=== PATIENT | female | born 1970 | race Caucasian/White ===

== ENCOUNTER 2016-06-12 18:09 | Emergency (ER) | payer BC ==
[~2016-06-12] VITALS: Ht 157.5 cm; Wt 78.1 kg
[~2016-06-12 18:09] MED LIST: ALBUAER19 INH; ALL180 PO; FLVHFAUNK PO; IBUP-1050 PO; PRLSR20 PO; SNG10 PO; TIOTCAP INH
[2016-06-12 18:20] VITALS: Ht 157.5 cm; Wt 78.1 kg
[2016-06-12] MEDS ORDERED: MONT1TAB3 PO (21:13)
[2016-06-12] MEDS ORDERED: ALBUAER INH (21:13)
[2016-06-12] MEDS ORDERED: RANI150T3 PO (21:13)
[2016-06-12] MEDS ORDERED: CLR10 PO (21:13)
[2016-06-12] MEDS ORDERED: FLVHFA110 INH (21:13)
[2016-06-12] MEDS ORDERED: MISCCAP80 PO (21:13)
[2016-06-12] MEDS ORDERED: NAPR1TAB9 PO (21:13)
--- NOTE | 2016-06-12 21:26 | EMERGENCY ROOM VISIT NOTE ---
History Report prepared by Pedro: Dedrick Phillips Under the Supervision of: Dr. Tapan Fernandes M.D. First contact with patient: 21:15 Chief Complaint: REFERRED BY DOCTOR Stated Complaint: FOUND A LUMP ON SIDE,SENT BY History of Present Illness The patient is a 45 year old female who presents to the Emergency Room with complaints of a constantly present lump on her right side under the breast that she noticed two nights ago. The lump is minimally painful and worsened with touch. The patient called her primary doctor who could not get her an appointment and referred her to the ED. The lump has not bled or drained. She had a CT abdomen in March, which showed hepatomegaly. The patient denies any fevers, cough. She has not had any recent injuries, trauma, or heavy lifting. The patient also complains of frequent abdominal bloating. She is s/p cholecystectomy. She has a history of ovarian cyst and endometriosis. Source of History: patient Onset: two nights ago Position: other (under right breast) Quality: other (lump) Timing: constant Associated Symptoms: No cough, No fevers Review of Systems See HPI for pertinent positives & negatives. A total of 10 systems reviewed and were otherwise negative. Past Medical & Surgical Medical Problems: (1) Endometriosis (2) Ovarian cyst Surgical Problems: (1) S/P cholecystectomy Old medical records were reviewed. Nurse's notes were reviewed and I agree with. Family History Diabetes mellitus FH: lung disease FHx: gallbladder disease Hypertension Kidney disease Social History Smoking Status: Never Smoker Marital Status: Housing Status: lives with family Occupation Status: employed Current/Historical Medications Scheduled Fluticasone Propionate (Flovent Hfa), 2 PUFFS INH BID Ibuprofen (Advil), 400-600 MG PO Q4HR PRN Montelukast Sodium (Singulair), 10 MG PO DAILY Probiotic Product (Probiotic), 1 CAP PO DAILY Ranitidine Hcl (Zantac), 150 MG PO HS Scheduled PRN Albuterol Sulfate (Proventil Hfa), 2 PUFF INH Q4 PRN for SOB/Wheezing Loratadine (Claritin), 10 MG PO DAILY PRN for ALLERGIC REACTION Naproxen (Aleve), 440 MG PO BID PRN for Pain Allergies Coded Allergies: Methylprednisolone (Verified Allergy, Severe, IRREGULAR HR, HIGH BP, ) Sulfamethoxazole w/Trimethoprim (Verified Allergy, Severe, ITCHY, 06/12/16) Penicillins (Verified Allergy, Mild, RASH, 10/18/11) RASH Cat Dander (Verified Allergy, Unknown, 01/28/05) Milk (Verified Allergy, Unknown, 01/28/05) Physical Exam Vital Signs Date Time Temp Pulse Resp B/P Pulse Ox O2 Delivery O2 Flow Rate FiO2 06/12/16 23:49 36.8 88 20 170/88 99 Room Air 06/12/16 23:49 88 20 170/88 99 06/12/16 21:36 76 20 142/102 99 Room Air 06/12/16 18:20 36.8 88 18 166/95 99 Room Air Physical Exam General: Non ill appearing young female no acute distress. HEENT: Normal cephalic atraumatic. Pupils are equal round and reactive to light. Extraocular movements are intact. Oropharynx is pink with moist mucous membranes. No swelling of the mouth lips or tongue. Neck: Supple with a midline trachea. No meningeal signs or stiffness, no JVD or bruits. No Stridor. Chest: Clear to auscultation bilaterally. No wheezes or rhonchi. No increased work of breathing. Heart: regular rate and rhythm. Abdomen: Tender along the right lower ribs where there is a nodule felt which could be cartilage or part of the rib. No hernias. Negative Renner's sign. Extremities: No cyanosis clubbing or edema. No calf tenderness or assymetry Spine/Back. Non tender to palpation. No CVA tenderness Skin: Good turgor without rashes. Neurologic exam: Cranial nerves two through 12 are intact. Motor and sensation are intact and symmetrical throughout. Medical Decision & Procedures ER Provider Diagnostic Interpretation: X-ray results as stated below per interpretation by me and the radiologist: CHEST ONE VIEW PORTABLE CLINICAL HISTORY: Chest pain. COMPARISON STUDY: No previous studies for comparison. FINDINGS: Lung volumes are normal. Lungs are clear. There is no pneumothorax or pleural effusion. Cardiac size is normal. Mediastinal contours are normal. There is no evidence of pulmonary edema. Minimal left basilar opacity favors atelectasis. IMPRESSION: No acute cardiopulmonary findings. Electronically signed by: Te Small M.D. 06/12/2016 9:50 PM Dictated Date/Time: 06/12/2016 9:49 PM Laboratory Results 06/12/16 21:45 Red Blood Count 4.76, Mean Corpuscular Volume 90.5, Mean Corpuscular Hemoglobin 30.9, Mean Corpuscular Hemoglobin Concent 34.1, Mean Platelet Volume 9.8, Neutrophils (%) (Auto) 56.9, Lymphocytes (%) (Auto) 34.7, Monocytes (%) (Auto) 6.1, Eosinophils (%) (Auto) 1.4, Basophils (%) (Auto) 0.5, Neutrophils # (Auto) 4.87, Lymphocytes # (Auto) 2.96, Monocytes # (Auto) 0.52, Eosinophils # (Auto) 0.12, Basophils # (Auto) 0.04 06/12/16 21:45 Test 06/12/16 21:45 White Blood Count 8.54 K/uL (4.8-10.8) Red Blood Count 4.76 M/uL (4.2-5.4) Hemoglobin 14.7 g/dL (12.0-16.0) Hematocrit 43.1 % (37-47) Mean Corpuscular Volume 90.5 fL (80-100) Mean Corpuscular Hemoglobin 30.9 pg (25-34) Mean Corpuscular Hemoglobin Concent 34.1 g/dl (32-36) Platelet Count 322 K/uL (130-400) Mean Platelet Volume 9.8 fL (7.4-10.4) Neutrophils (%) (Auto) 56.9 % Lymphocytes (%) (Auto) 34.7 % Monocytes (%) (Auto) 6.1 % Eosinophils (%) (Auto) 1.4 % Basophils (%) (Auto) 0.5 % Neutrophils # (Auto) 4.87 K/uL (1.4-6.5) Lymphocytes # (Auto) 2.96 K/uL (1.2-3.4) Monocytes # (Auto) 0.52 K/uL (0.11-0.59) Eosinophils # (Auto) 0.12 K/uL (0-0.5) Basophils # (Auto) 0.04 K/uL (0-0.2) RDW Standard Deviation 43.1 fL (36.4-46.3) RDW Coefficient of Variation 13.0 % (11.5-14.5) Immature Granulocyte % (Auto) 0.4 % Immature Granulocyte # (Auto) 0.03 K/uL (0.00-0.02) Anion Gap 9.0 mmol/L (3-11) Est Creatinine Clear Calc Drug Dose 91.0 ml/min Estimated GFR () 111.8 Estimated GFR (Non- 96.5 BUN/Creatinine Ratio 23.9 (10-20) Calcium Level 9.1 mg/dl (8.5-10.1) Total Bilirubin 0.6 mg/dl (0.2-1) Direct Bilirubin 0.1 mg/dl (0-0.2) Aspartate Amino Transf (AST/SGOT) 18 U/L (15-37) Alanine Aminotransferase (ALT/SGPT) 28 U/L (12-78) Alkaline Phosphatase 65 U/L (45-117) Total Protein 7.0 gm/dl (6.4-8.2) Albumin 3.8 gm/dl (3.4-5.0) Lipase 219 U/L (73-393) Laboratory studies as stated above per my review. ED Course 2116: Past medical records reviewed. The patient was evaluated in room C5, and a complete history and physical examination were performed. 2316: The patient is more comfortable. 2340: Reassessed the patient. Discussed the findings with her. She verbalized understanding and agreement. The patient is ready for discharge. Medical Decision Differential diagnosis includes costochondritis, musculoskeletal pain, infection , hernia, electrolyte or metabolic abnormality, hepatic abnormality. This patient comes in as described above. She was placed in room C5. She is having pain along the right lower ribs. She's had extensive workup for this including CAT scans, GI workup, etc. She looks well on exam . she's had no trauma. On my exam. She is tender to palpation along the ribs. Chest x-ray is unremarkable and shows no pneumothorax or anything in the base. She's no pleurisy or anything to suggest PE or pulmonary process. She has normal vital signs with exception be mildly hypertensive although she is somewhat anxious which likely explains this. She's had no white count or fever discussed infection. She's not significant anemic. She has normal liver functions and lipase. There is nothing to suggest liver, gallbladder, or pancreas disease. She has normal kidney function. I think this is most likely musculoskeletal. I have reviewed her CAT scan reports they do not show any definite abnormalities. She was concerned about her liver as there was a possible hemangioma seen on CAT scan. I think this is unlikely causing her symptoms. I encourage her follow-up with her regular doctor ,use anti-inflammatories, return if: increasing pain, worsening of symptoms, fever or chills, any new problems concerns. The patient was happy with plan and she was discharged to home. Impression Primary Impression: Rib pain on right side Scribe Attestation The scribe's documentation has been prepared under my direction and personally reviewed by me in its entirety. I confirm that the note above accurately reflects all work, treatment, procedures, and medical decision making performed by me. Departure Information Dispostion Home / Self-Care Referrals Kevin Webb M.D. (PCP) Forms HOME CARE DOCUMENTATION FORM, IMPORTANT VISIT INFORMATION, WORK / SCHOOL INSTRUCTIONS Patient Instructions My [facility] Additional Instructions Rest Drink plenty of fluids Use Ibuprofen 400 mg every 6 hours take with food REturn if: worsening of symptoms, increasing pain, fever, any new problems, or concerns
--- NOTE | 2016-06-12 21:51 | DIAGNOSTIC IMAGING REPORT ---
CHEST ONE VIEW PORTABLE CLINICAL HISTORY: Chest pain. COMPARISON STUDY: No previous studies for comparison. FINDINGS: Lung volumes are normal. Lungs are clear. There is no pneumothorax or pleural effusion. Cardiac size is normal. Mediastinal contours are normal. There is no evidence of pulmonary edema. Minimal left basilar opacity favors atelectasis. IMPRESSION: No acute cardiopulmonary findings. Electronically signed by: Te Small M.D. 06/12/2016 9:50 PM Dictated Date/Time: 06/12/2016 9:49 PM
[2016-06-12 22:02] LABS: BASO % 0.5 %; BASO ABS # 0.04 K/uL (0-0.2); COMPLETE YES; EOS % 1.4 %; HEMATOCRIT 43.1 % (37-47); IG% 0.4 %; LYMPH % 34.7 %; LYMPH ABS # 2.96 K/uL (1.2-3.4); MEAN CELL VOLUME 90.5 fL (80-100); MEAN CORPUSCULAR HEMOGLOBIN 30.9 pg (25-34); MEAN CORPUSCULAR HGB CONC 34.1 g/dl (32-36); MEAN PLATELET VOLUME 9.8 fL (7.4-10.4); MONO % 6.1 %; NEUT % 56.9 %; PLATELET COUNT 322 K/uL (130-400); RED BLOOD COUNT 4.76 M/uL (4.2-5.4); WHITE BLOOD COUNT 8.54 K/uL (4.8-10.8)
[2016-06-12 22:21] LABS: BUN/CREATININE RATIO 23.9 (10-20); CALCIUM 9.1 mg/dl (8.5-10.1); CREATININE 0.74 mg/dl (0.60-1.20); POTASSIUM 3.5 mmol/L (3.5-5.1)
[2016-06-12 23:49] VITALS: BP 170/88; PULSE 88; TEMP 36.8; O2SAT 99
== END 2016-06-12 23:51 | disposition home or self-care (01) ==
LOC: C.EDB 18:10 → C.EDC 23:51
DX: R07.81 Pleurodynia (principal); N80.9 Endometriosis, unspecified; N83.209 Unspecified ovarian cyst, unspecified side; Z83.3 Family history of diabetes mellitus; Z83.6 Family history of other diseases of the respiratory system; Z83.79 Family history of other diseases of the digestive system; Z84.1 Family history of disorders of kidney and ureter; Z79.899 Other long term (current) drug therapy

== ENCOUNTER 2016-10-26 12:40 | Emergency (ER) | payer BC ==
[~2016-10-26] VITALS: Ht 157.5 cm; Wt 77.1 kg
[~2016-10-26 12:40] MED LIST changes: +ALBUAER INH; -ALBUAER19 INH; -ALL180 PO; +CLR10 PO; +FLVHFA110 INH; -FLVHFAUNK PO; +MISCCAP80 PO; +MONT1TAB3 PO; +NAPR1TAB9 PO; -PRLSR20 PO; +RANI150T3 PO; -SNG10 PO; -TIOTCAP INH
[2016-10-26 12:46] VITALS: TEMP 36.8; Ht 157.5 cm; Wt 77.1 kg
[2016-10-26] MEDS ORDERED: ONDANSETRON INJ 2 MG/ML 2 ML VIAL IV STA (14:07)
[2016-10-26] MEDS ORDERED: SODIUM CHLORIDE 0.9% 1000ML 1,000 ML IV STA (14:07)
[2016-10-26] MEDS ORDERED: MoRPHine SULFATE 10 MG/ML CARP/VIAL IV PRN (14:15)
[2016-10-26 14:46] LABS: URINE APPEARANCE CLEAR (CLEAR); URINE BILIRUBIN NEG (NEG); URINE COLOR YELLOW; URINE NITRITE NEG (NEG); URINE PH 6.5 (4.5-7.5); URINE SPECIFIC GRAVITY 1.007 (1.000-1.030); UROBILINOGEN NEG (NEG)
[2016-10-26 14:47] LABS: MANUAL MICROSCOPIC REQUIRED? NO; REVIEW REQ? NO
[2016-10-26 14:57] LABS: BASO % 0.3 %; BASO ABS # 0.03 K/uL (0-0.2); COMPLETE YES; EOS % 0.2 %; HEMATOCRIT 42.9 % (37-47); IG% 0.2 %; LYMPH % 12.3 %; MEAN CELL VOLUME 91.1 fL (80-100); MEAN CORPUSCULAR HEMOGLOBIN 29.7 pg (25-34); MEAN CORPUSCULAR HGB CONC 32.6 g/dl (32-36); MONO % 5.1 %; NEUT % 81.9 %; PLATELET COUNT 333 K/uL (130-400); RED BLOOD COUNT 4.71 M/uL (4.2-5.4)
[2016-10-26 15:19] LABS: BUN/CREATININE RATIO 10.6 (10-20); CALCIUM 8.7 mg/dl (8.5-10.1); CREATININE 0.79 mg/dl (0.60-1.20); POTASSIUM 3.7 mmol/L (3.5-5.1)
[2016-10-26] MEDS ORDERED: OPTIRAY 320 IV PRN (16:45)
--- NOTE | 2016-10-26 18:22 | DIAGNOSTIC IMAGING REPORT ---
CT ABD/PELVIS IV AND ORAL CONT CLINICAL HISTORY: R sided abd pain; s/p cholecystectomy and hx of hepatomegaly COMPARISON STUDY: 02/09/2008 TECHNIQUE: Following the IV administration of 91 mL of Optiray-320, CT scan of the abdomen and pelvis was performed from the lung bases to the proximal femurs. Images are reviewed in the axial, sagittal, and coronal planes. IV contrast was administered without complication. CT DOSE: 576.49 mGy.cm FINDINGS: Lower chest: There are minor dependent atelectatic changes. Liver: There is mild hepatic steatosis. No focal masses are visualized. Gallbladder: Surgically absent Spleen: Normal in size and attenuation. Pancreas: Unremarkable. Adrenal glands: Unremarkable. Kidneys: There is symmetric renal cortical enhancement. The kidneys are normal in size without hydronephrosis. Bowel: There is scattered colonic and small bowel air-fluid levels. There are no transition zones to indicate bowel obstruction. The appendix is normal. There is no acute diverticulitis. Peritoneum: There is no intraperitoneal free air or abdominal ascites. There is a tiny fat-containing umbilical hernia. Vasculature: The abdominal aorta is normal in course and caliber. Adenopathy: There is a mildly enlarged 13 mm right anterior prepubic peroneal lymph node Pelvic viscera: There is a complex 27 mm left ovarian cyst with areas of rim calcification. There is minimal infiltration of the fat paralleling the left gonadal vein. This finding remains similar to the prior 2007 study and is therefore likely chronic Skeletal structures: No destructive osseous lesions are seen. IMPRESSION: 1. No evidence of bowel obstruction. No evidence of free air. 2. Normal appendix. 3. No evidence of acute diverticulitis. 4. 27 mm complex left ovarian cyst with rim calcification 5. Mildly enlarged 13 mm right anterior prepubic peroneal lymph node Electronically signed by: Renzo Traore M.D. 10/26/2016 6:20 PM Dictated Date/Time: 10/26/2016 6:13 PM
[2016-10-26 18:56] VITALS: BP 117/84; PULSE 94; O2SAT 100
--- NOTE | 2016-10-26 23:49 | EMERGENCY ROOM VISIT NOTE ---
ED Visit Note First contact with patient: 13:38 Chief Complaint: Right sided abdominal pain. History of Present Illness: Ms. Menchaca is a 46 year-old white female who ambulates into the ED accompanied by her daughter complaining of right sided abdominal pain. Historically patient reports she is status post cholecystectomy and exploratory surgery for endometriosis. She was recently diagnosed with a enlarged liver and an MRI of her liver is pending to the [facility]. Patient reports a acute onset of right sided abdominal pain that woke her from sleep started at 3 AM this morning, approximately 9 hours ago. Since that time the pain has been constant but has waxed and waned in intensity. She reports at its onset she rated her discomfort 8/10 and now it is rated 5/10. The pain is nonradiating. She describes her pain as a sharp sensation. She noted when she rolled onto the left side of her abdomen her pain decreased but when she rolled onto her back her pain became more severe. She did take ibuprofen approximately 9 AM this morning, 6 hours after the onset of pain and felt slightly improved her discomfort. She does report when she rolled onto her back and her pain increased she became nauseated and had 2 episodes of vomiting ; which has not returned. Associated with her pain she reports she has been having some chills but no natacha fever, she has had a decreased appetite and she feels her abdomen is distended. Additionally she reports that up until approximately one week ago she did not have a menstrual cycle for the year. One week ago she developed vaginal bleeding which she reports was initially heavy and now it is scant. Additionally she reports she was having moderate cramping at the onset of her bleeding also. Patient denies sweats, skin eruptions, skin color changes, upper respiratory tract symptoms, shortness of breath, chest pain, diarrhea, constipation, rectal bleeding, black/tarry stools, urinary symptoms, hematuria, back/flank pain. Review of Systems: As noted above in history of present illness. All body systems were reviewed and found to be negative as noted above. Past Medical History: As previously noted and asthma, status post ovarian cyst removal and lumpectomies. Current Medications: Zantac, probiotic, Flovent, Singulair, albuterol. Allergies to Medications: Penicillin, Bactrim, Medrol Dosepak. Social History: Patient is currently employed; she feels safe in her home environment; she denies tobacco use and admits to alcohol use. Physical Examination: Vital Signs: Date Time Temp Pulse Resp B/P (MAP) Pulse Ox O2 Delivery O2 Flow Rate FiO2 10/26/16 18:56 94 18 117/84 100 10/26/16 18:00 101 20 110/73 99 Room Air 10/26/16 15:52 101 20 111/73 99 Room Air 10/26/16 12:46 36.8 118 20 100/66 99 Room Air GENERAL: 46-year-old female in mild distress due to pain, nontoxic-appearing, afebrile and hemodynamically stable. NEUROLOGICAL: Awake, alert and oriented to person, place and time. Answering questions appropriately and following commands. Normal gait. Good hand eye coordination. SKIN: Warm, dry and pink. No soft tissue eruptions or trauma noted. HEENT: Atraumatic and normocephalic. PERRLA. Sclera white and conjunctiva pink. Oral cavity moist and pink. Pharynx is nonerythematous or edematous. Speech normal. No lymphadenopathy. Trachea midline. No jugular venous distention. BACK: No tenderness over the bony spine. No CVA tenderness. THORAX: Lungs sounds are clear to auscultation and equal bilaterally with symmetrical chest wall. No wheezing, rales or rhonchi. No crepitus, tenderness , subcutaneous air or deformities noted. HEART: Regular rate and rhythm. No gallops, rubs or murmurs are appreciated. ABDOMEN: Obese and soft with diffuse tenderness throughout the abdomen with prominence in the epigastric area and the right mid and lower quadrants. Positive bowel sounds in all quadrants. No guarding, rigidity or organomegaly. EXTREMITIES: Moves all extremities well on command and with purpose. All distal neurovascular statuses are intact and equal bilaterally. ED Course: Patient is assessed as noted above. Patient's medication list was reviewed. Laboratory Testing: Test 10/26/16 14:10 10/26/16 14:45 Range/Units Urine Color YELLOW Urine Appearance CLEAR CLEAR Urine pH 6.5 4.5-7.5 Urine Specific [place] 1.007 1.000-1.030 Urine Protein NEG NEG Urine Glucose (UA) NEG NEG Urine Ketones NEG NEG Urine Occult Blood NEG NEG Urine Nitrite NEG NEG Urine Bilirubin NEG NEG Urine Urobilinogen NEG NEG Urine Leukocyte Esterase NEG NEG White Blood Count 11.40 4.8-10.8 K/uL Red Blood Count 4.71 4.2-5.4 M/uL Hemoglobin 14.0 12.0-16.0 g/dL Hematocrit 42.9 37-47 % Mean Corpuscular Volume 91.1 80-100 fL Mean Corpuscular Hemoglobin 29.7 25-34 pg Mean Corpuscular Hemoglobin Concent 32.6 32-36 g/dl Platelet Count 333 130-400 K/uL Mean Platelet Volume 10.0 7.4-10.4 fL Neutrophils (%) (Auto) 81.9 % Lymphocytes (%) (Auto) 12.3 % Monocytes (%) (Auto) 5.1 % Eosinophils (%) (Auto) 0.2 % Basophils (%) (Auto) 0.3 % Neutrophils # (Auto) 9.35 1.4-6.5 K/uL Lymphocytes # (Auto) 1.40 1.2-3.4 K/uL Monocytes # (Auto) 0.58 0.11-0.59 K/uL Eosinophils # (Auto) 0.02 0-0.5 K/uL Basophils # (Auto) 0.03 0-0.2 K/uL RDW Standard Deviation 44.4 36.4-46.3 fL RDW Coefficient of Variation 13.3 11.5-14.5 % Immature Granulocyte % (Auto) 0.2 % Immature Granulocyte # (Auto) 0.02 0.00-0.02 K/uL Sodium Level 137 136-145 mmol/L Potassium Level 3.7 3.5-5.1 mmol/L Chloride Level 103 98-107 mmol/L Carbon Dioxide Level 25 21-32 mmol/L Anion Gap 9.0 3-11 mmol/L Blood Urea Nitrogen 8 7-18 mg/dl Creatinine 0.79 0.60-1.20 mg/dl Est Creatinine Clear Calc Drug Dose 83.7 ml/min Estimated GFR () 102.6 Estimated GFR (Non- 88.5 BUN/Creatinine Ratio 10.6 10-20 Random Glucose 105 70-99 mg/dl Calcium Level 8.7 8.5-10.1 mg/dl Total Bilirubin 0.8 0.2-1 mg/dl Direct Bilirubin 0.2 0-0.2 mg/dl Aspartate Amino Transf (AST/SGOT) 28 15-37 U/L Alanine Aminotransferase (ALT/SGPT) 44 12-78 U/L Alkaline Phosphatase 81 45-117 U/L Total Protein 6.6 6.4-8.2 gm/dl Albumin 3.4 3.4-5.0 gm/dl Lipase 177 73-393 U/L Contrast Abdominal/Pelvic CT: Was reviewed by myself and read by the radiologist and shows minor dependent atelectasis changes, mild hepatic steatosis without focal masses, gallbladder surgical absent, spleen normal size and attenuation, pancreas unremarkable, kidneys are symmetrical without hydronephrosis, bowel shows scattered colonic and small bowel air-fluid levels without transition zone to indicate bowel obstruction, normal-appearing appendix , no acute diverticulitis, no free intraperitoneal air or ascites, tiny fat containing umbilical hernia, normal-appearing aorta, mildly enlarged 13 mm right anterior prepuce her to be a lymph node, complex 27 mm left ovarian cyst with calcified rim, minimal infiltrative changes of the fat paralleling the left gonadal vein and skeletal structures were without distracting lesions. Patient was hydrated with normal saline; she was offered morphine for pain and Zofran for nausea but refused. Patient was reassessed multiple times during her stay in the emergency department. Patient's case was reviewed with Dr. Gonzalez; we agreed on diagnostic approach, treatment, disposition and plan. Patient was educated about today's findings and instructed on her treatment plan ; she verbalized understanding and agreement with this plan. Clinical Impression: Abdominal pain. Decision-Making: Initially my differential diagnosis I considered acute appendicitis, ovarian torsion, ovarian cyst ruptured, constipation, bowel obstruction, hepatitis, pancreatitis and other causes. Disposition: Patient discharged home in stable condition; prior to departure she was reassessed and subjectively reported she was feeling the same and rated her discomfort 4/10. Plan: Patient was encouraged to alternate ibuprofen and acetaminophen as needed for pain every 3 hours. Patient was encouraged to stay well-hydrated with increased clear fluids. Patient was encouraged to use a light/bland diet for the next 24-48 hours. Patient was encouraged to follow-up with her PCP and [facility] specialist in the next 2-3 days. Patient was encouraged return the ED for worsening/uncontrolled pain, worsening nausea/vomiting, bloody vomitus, bloody stools, fevers or any new/concerning symptoms.
== END 2016-10-26 18:57 | disposition home or self-care (01) ==
LOC: C.EDB 12:41
DX: R10.9 Unspecified abdominal pain (principal); N83.202 Unspecified ovarian cyst, left side; J45.909 Unspecified asthma, uncomplicated; Z79.899 Other long term (current) drug therapy; Z88.0 Allergy status to penicillin; Z88.8 Allergy status to other drugs, medicaments and biological substances

== ENCOUNTER → 2016-12-15 | Outpatient (CLI) | payer BC ==
[~2016-12-15] MED LIST changes: -CLR10 PO; -IBUP-1050 PO; -NAPR1TAB9 PO
--- NOTE | 2016-12-15 10:49 | DIAGNOSTIC IMAGING REPORT ---
RIGHT KNEE 4 VIEWS HISTORY: RIGHT KNEE PAIN Right COMPARISON: None. FINDINGS: There is no fracture or dislocation. Soft tissues are unremarkable. No radiopaque foreign bodies. No knee effusion. Minimal cartilage space narrowing within the medial compartment consistent with developing degenerative change. IMPRESSION: Developing mild degenerative change within the medial compartment of the right knee. No fractures. Electronically signed by: Yuniel Rojas M.D. 12/15/2016 10:48 AM Dictated Date/Time: 12/15/2016 10:46 AM
== END | disposition home or self-care (01) ==
LOC: C.RDSM 13:59
PROVIDERS: ATTEND Family Medicine
DX: M25.561 Pain in right knee (principal)

== ENCOUNTER → 2016-12-18 | Outpatient (CLI) | payer BC ==
--- NOTE | 2016-12-18 14:45 | DIAGNOSTIC IMAGING REPORT ---
RIGHT SHOULDER MIN 2 VIEWS CLINICAL HISTORY: 46 years-old Female presenting with chronic right shoulder and hip pain. TECHNIQUE: Internal rotation, transscapular Y, and axillary views the right shoulder were obtained. COMPARISON: Correlation made to chest x-ray from 06/12/2016. FINDINGS: Glenohumeral and acromioclavicular joints congruent. No acute fracture or subluxation. No osseous deformity of the humeral head or glenoid. No significant degenerative change. Visualized portion of the right hemithorax normal. IMPRESSION: Normal right shoulder. Electronically signed by: Clarence Chaves M.D. 12/18/2016 2:43 PM Dictated Date/Time: 12/18/2016 2:42 PM
--- NOTE | 2016-12-18 14:46 | DIAGNOSTIC IMAGING REPORT ---
RIGHT HIP UNILATERAL MIN 2 VIEWS CLINICAL HISTORY: Right hip pain COMPARISON: None. DISCUSSION: No fractures or dislocations are visualized. There are no erosive or destructive changes. The joint space appears well-preserved for age. IMPRESSION: 1. No fractures identified 2. No evidence of erosive or destructive change. Electronically signed by: Renzo Troare M.D. 12/18/2016 2:45 PM Dictated Date/Time: 12/18/2016 2:44 PM
== END | disposition home or self-care (01) ==
LOC: C.RDSM 14:15
PROVIDERS: ATTEND Family Medicine
DX: M25.551 Pain in right hip (principal); M25.511 Pain in right shoulder

== ENCOUNTER → 2017-03-02 | Outpatient (CLI) | payer BC ==
--- NOTE | 2017-03-02 20:26 | DIAGNOSTIC IMAGING REPORT ---
R LOWER EXT JOINT WITHOUT CLINICAL HISTORY: 46 years-old Female presenting with PAIN IN RT HIP AND KNEE PAIN. TECHNIQUE: Multisequence, multiplanar MR imaging of the right knee was performed without the use of intravenous contrast. IV contrast: None. COMPARISON: Plain radiographs of the right knee from 12/15/2016. FINDINGS: Localizer images: Unremarkable. Bone marrow edema noted at the root of the anterior horn of the lateral meniscus. Bone marrow edema also noted over the medial aspect of the medial femoral condyle anteriorly. Focal subchondral cystic change in the anterior weightbearing portion of the medial femoral condyle with intact overlying cartilage though increased signal intensity of the cartilage is suggested. No other cartilage abnormality. Complex tear of the anterior root of the lateral meniscus, likely superimposed on central degenerative change. Medial meniscus intact. Anterior and posterior cruciate ligaments intact. Medial collateral ligament demonstrates minimal thickening proximally with mild edema superficial and deep to the proximal fibers consistent with grade 1 sprain. Lateral collateral ligament complex including the biceps femoris tendon, fibular collateral ligament, popliteus tendon, and iliotibial band intact. Quadriceps and patellar tendons intact. Minimal prepatellar subcutaneous edema. No infiltration of Hoffa's fat pad. Trace knee joint effusion in the suprapatellar recess. Trace popliteal cyst. Normal bulk and signal intensity of the muscles. IMPRESSION: 1. Complex tear of the anterior root of the lateral meniscus superimposed on chronic degenerative change with resulting bony edema. 2. Grade 1 sprain of the medial collateral ligament. Thickening suggests tendinosis. 3. Minimal bony edema in the medial aspect of the medial femoral condyle anteriorly, which could represent bony contusion or chronic degenerative reactive changes. 4. Focal subchondral cystic change in the anterior weightbearing portion of the medial femoral condyle with intact overlying cartilage. This could suggest full-thickness cartilage injury. Electronically signed by: Clarence Chaves M.D. 03/02/2017 8:25 PM Dictated Date/Time: 03/02/2017 8:17 PM
== END | disposition home or self-care (01) ==
LOC: C.MRI 18:34
PROVIDERS: ATTEND Family Medicine
DX: M25.561 Pain in right knee (principal); M25.551 Pain in right hip

== ENCOUNTER 2017-04-16 15:16 | Emergency (ER) | payer BC ==
[~2017-04-16] VITALS: Ht 157.5 cm; Wt 73.0 kg
[~2017-04-16 15:16] MED LIST changes: -FLVHFA110 INH; -MONT1TAB3 PO
[2017-04-16 15:18] VITALS: TEMP 37; Ht 157.5 cm; Wt 73.0 kg
[2017-04-16] MEDS ORDERED: IBUP-103 PO (15:34)
[2017-04-16] MEDS ORDERED: DOCU100C PO (15:34)
[2017-04-16] MEDS ORDERED: ACET-1256 PO (15:34)
[2017-04-16] MEDS ORDERED: POLY335019 PO (15:34)
[2017-04-16] MEDS ORDERED: HYDROmorphone INJ 1 MG/ML SYR IV STA (15:38)
[2017-04-16 16:00] LABS: BASO % 0.5 %; BASO ABS # 0.05 K/uL (0-0.2); EOS % 0.7 %; EOS ABS # 0.08 K/uL (0-0.5); HEMATOCRIT 43.7 % (37-47); HEMOGLOBIN 15.2 g/dL (12.0-16.0); IG# 0.03 K/uL (0.00-0.02); LYMPH % 20.8 %; LYMPH ABS # 2.24 K/uL (1.2-3.4); MEAN CORPUSCULAR HGB CONC 34.8 g/dl (32-36); MEAN PLATELET VOLUME 10.1 fL (7.4-10.4); MONO ABS # 0.54 K/uL (0.11-0.59); NEUT % 72.7 %; NEUT ABS # 7.83 K/uL (1.4-6.5); PLATELET COUNT 365 K/uL (130-400); RED CELL DISTRIBUTION WIDTH CV 12.8 % (11.5-14.5); RED CELL DISTRIBUTION WIDTH SD 41.7 fL (36.4-46.3); WHITE BLOOD COUNT 10.77 K/uL (4.8-10.8)
[2017-04-16 16:02] VITALS: O2SAT 99
[2017-04-16 16:09] LABS: PTT PATIENT 24.5 SECONDS (21.0-31.0)
[2017-04-16 16:16] LABS: ALBUMIN 4.2 gm/dl (3.4-5.0); CALCIUM 9.3 mg/dl (8.5-10.1); CREATININE 0.73 mg/dl (0.60-1.20); POTASSIUM 3.6 mmol/L (3.5-5.1)
[2017-04-16 16:19] LABS: TOTAL PROTEIN 7.5 gm/dl (6.4-8.2)
--- NOTE | 2017-04-16 16:32 | DIAGNOSTIC IMAGING REPORT ---
R KNEE 3 VIEWS CLINICAL HISTORY: R leg pain, recent surgery pain COMPARISON: None. DISCUSSION: The bones and joint spaces appear intact. There is no evidence of fracture, dislocation or bony disease. There is no evidence for soft tissue swelling. IMPRESSION: Negative study. The above report was generated using voice recognition software. It may contain grammatical, syntax or spelling errors. Electronically signed by: Jj Vargas M.D. 04/16/2017 4:31 PM Dictated Date/Time: 04/16/2017 4:30 PM
--- NOTE | 2017-04-16 16:57 | DIAGNOSTIC IMAGING REPORT ---
R VENOUS DOPP LOWER EXT UNILAT CLINICAL HISTORY: R leg pain, recent surgery pain. Edema. TECHNIQUE: Venous Doppler COMPARISON STUDY: None FINDINGS: Normal study IMPRESSION: Normal study The above report was generated using voice recognition software. It may contain grammatical, syntax or spelling errors. Electronically signed by: Jj Vargas M.D. 04/16/2017 4:55 PM Dictated Date/Time: 04/16/2017 4:55 PM
[2017-04-16] MEDS ORDERED: FENTANYL CITRATE INJ 50 MCG/1 ML 2 ML VIAL IV STA (17:52)
[2017-04-16] MEDS ORDERED: LORAZEPAM INJ 0.5 MG in SYRINGE 0.25 ML IV STA (18:17)
[2017-04-16] MEDS ORDERED: LORAZEPAM 2 MG/ML 1 ML VIAL ONE (18:24)
--- NOTE | 2017-04-16 19:02 | DIAGNOSTIC IMAGING REPORT ---
R LOWER EXT JOINT WITHOUT CLINICAL HISTORY: R knee pain, refered by ortho for MRI TECHNIQUE: Multiaxial MRI acquisition COMPARISON STUDY: 05/02/2016 FINDINGS: Signal characteristics of the osseous structures again indicate minimal degenerative change of the subchondral component of the mid tibial plateau. This is a nonacute finding. There is a displaced component of the lateral meniscus at the posterior aspect intercondylar notch best seen sagittal images 10 and coronal image 19. This appears to relate to a displaced bucket-handle tear of the post operative lateral meniscus. Medial meniscus shows minimal intrameniscal signal but no significant medial meniscal tear is appreciated. Articular services appear to be intact. The collateral ligament complexes are intact. Medial and lateral patellar retinaculum are unremarkable. There is no evidence for significant popliteal cyst nor is there significant joint effusion. Anterior and posterior cruciate ligaments are intact. Patellar articulating surface is intact. IMPRESSION: 1. Disruption of the postoperative lateral meniscus with a displaced bucket-handle tear located at the posterior aspect of the intercondylar notch. 2. Minimal degenerative changes unaltered from the prior study. 3. Remainder the study is unremarkable. The above report was generated using voice recognition software. It may contain grammatical, syntax or spelling errors. Electronically signed by: Jj Vargas M.D. 04/16/2017 7:00 PM Dictated Date/Time: 04/16/2017 6:52 PM
--- NOTE | 2017-04-16 19:06 | EMERGENCY ROOM VISIT NOTE ---
History First contact with patient: 15:26 Chief Complaint: KNEEPAIN Stated Complaint: SEVERE KNEE PAIN History of Present Illness The patient is a 46 year old female who presents to the Emergency Room via private vehicle accompanied by and daughter with complaints of "severe knee pain". The patient states that she recently had surgery performed 2 weeks ago a [facility] in [place]. She had a hysterectomy and appendectomy. She states that even before that she was dealing with right knee pain. She had an MRI performed which revealed numerous elements in the right knee. She states that the pain at that time was a 1/10. She notes that today while moving about the pain skyrocketed to a 10/10. She states that she was seen by one of the orthopedic physicians at [facility] orthopedics here and [place] was referred here to the emergency department for potential MRI after we're able to manage her pain. She notes that her toes are also slightly tingly. Review of Systems A complete 10-point Review of Systems was discussed with the patient, with pertinent positives and negatives listed in the History of Present Illness. All remaining Review of Systems questions can be considered negative unless otherwise specified. Past Medical/Surgical History Medical Problems: (1) Endometriosis (2) Ovarian cyst Surgical Problems: (1) S/P cholecystectomy Family History Diabetes mellitus FH: lung disease FHx: gallbladder disease Hypertension Kidney disease Social History Smoking Status: Never Smoker Marital Status: Housing Status: lives with family Occupation Status: employed Current/Historical Medications Scheduled Fluticasone Propionate (Flovent Hfa), 2 PUFFS INH BID Montelukast Sodium (Singulair), 10 MG PO DAILY Scheduled PRN Acetaminophen (Tylenol), 1,000 MG PO Q6H PRN for Pain Docusate Sodium (Stool Softener), 100 MG PO BID PRN for Constipation Ibuprofen Tab (Advil), 400-600 MG PO Q6H PRN for Pain Oxycodone Ir (Roxicodone Ir), 1-2 TAB PO Q4H PRN for Pain Polyethylene Glycol 3350 (Miralax), 17 GM PO DAILY PRN for Constipation Physical Exam Vital Signs Date Time Temp Pulse Resp B/P (MAP) Pulse Ox O2 Delivery O2 Flow Rate FiO2 04/16/17 20:42 84 20 148/91 99 Room Air 04/16/17 19:00 87 20 147/87 99 Room Air 04/16/17 16:02 99 Room Air 04/16/17 15:18 37.0 95 17 152/86 99 Room Air Physical Exam VITAL SIGNS - Vital signs and nursing notes were reviewed. Stable. Hypertensive. GENERAL -46-year-old female appearing her stated age who is in no acute distress. Communicates well with provider and answers questions appropriately. SKIN - Without rashes. No petechial rashes. Skin overlying the right knee is unremarkable. No erythema or edema. Incision of the abdomen appears to be healing well. No evidence of infection. EXTREMITIES - No clubbing or peripheral cyanosis. No pretibial edema present. Right knee is fixed in near full extension. Secondary to pain range of motion is not appreciated. Tenderness upon palpation of the knee joint itself. No radiating proximal or distal tenderness appreciated upon palpation. She is neurovascularly intact in this region. +5/5 strength noted in UE/LE bilaterally. Medical Decision & Procedures ER Provider Diagnostic Interpretation: R LOWER EXT JOINT WITHOUT CLINICAL HISTORY: R knee pain, refered by ortho for MRI TECHNIQUE: Multiaxial MRI acquisition COMPARISON STUDY: 05/02/2016 FINDINGS: Signal characteristics of the osseous structures again indicate minimal degenerative change of the subchondral component of the mid tibial plateau. This is a nonacute finding. There is a displaced component of the lateral meniscus at the posterior aspect intercondylar notch best seen sagittal images 10 and coronal image 19. This appears to relate to a displaced bucket-handle tear of the post operative lateral meniscus. Medial meniscus shows minimal intrameniscal signal but no significant medial meniscal tear is appreciated. Articular services appear to be intact. The collateral ligament complexes are intact. Medial and lateral patellar retinaculum are unremarkable. There is no evidence for significant popliteal cyst nor is there significant joint effusion. Anterior and posterior cruciate ligaments are intact. Patellar articulating surface is intact. IMPRESSION: 1. Disruption of the postoperative lateral meniscus with a displaced bucket-handle tear located at the posterior aspect of the intercondylar notch. 2. Minimal degenerative changes unaltered from the prior study. 3. Remainder the study is unremarkable. The above report was generated using voice recognition software. It may contain grammatical, syntax or spelling errors. Electronically signed by: Jj Vargas M.D. 04/16/2017 7:00 PM Dictated Date/Time: 04/16/2017 6:52 PM Laboratory Results 04/16/17 15:49 Red Blood Count 4.91, Mean Corpuscular Volume 89.0, Mean Corpuscular Hemoglobin 31.0, Mean Corpuscular Hemoglobin Concent 34.8, Mean Platelet Volume 10.1, Neutrophils (%) (Auto) 72.7, Lymphocytes (%) (Auto) 20.8, Monocytes (%) (Auto) 5.0, Eosinophils (%) (Auto) 0.7, Basophils (%) (Auto) 0.5, Neutrophils # (Auto) 7.83, Lymphocytes # (Auto) 2.24, Monocytes # (Auto) 0.54, Eosinophils # (Auto) 0.08, Basophils # (Auto) 0.05 04/16/17 15:49 Test 04/16/17 15:49 White Blood Count 10.77 K/uL (4.8-10.8) Red Blood Count 4.91 M/uL (4.2-5.4) Hemoglobin 15.2 g/dL (12.0-16.0) Hematocrit 43.7 % (37-47) Mean Corpuscular Volume 89.0 fL (80-100) Mean Corpuscular Hemoglobin 31.0 pg (25-34) Mean Corpuscular Hemoglobin Concent 34.8 g/dl (32-36) Platelet Count 365 K/uL (130-400) Mean Platelet Volume 10.1 fL (7.4-10.4) Neutrophils (%) (Auto) 72.7 % Lymphocytes (%) (Auto) 20.8 % Monocytes (%) (Auto) 5.0 % Eosinophils (%) (Auto) 0.7 % Basophils (%) (Auto) 0.5 % Neutrophils # (Auto) 7.83 K/uL (1.4-6.5) Lymphocytes # (Auto) 2.24 K/uL (1.2-3.4) Monocytes # (Auto) 0.54 K/uL (0.11-0.59) Eosinophils # (Auto) 0.08 K/uL (0-0.5) Basophils # (Auto) 0.05 K/uL (0-0.2) RDW Standard Deviation 41.7 fL (36.4-46.3) RDW Coefficient of Variation 12.8 % (11.5-14.5) Immature Granulocyte % (Auto) 0.3 % Immature Granulocyte # (Auto) 0.03 K/uL (0.00-0.02) Prothrombin Time 10.4 SECONDS (9.0-12.0) Prothromb Time International Ratio 1.0 (0.9-1.1) Activated Partial Thromboplast Time 24.5 SECONDS (21.0-31.0) Partial Thromboplastin Ratio 0.9 Anion Gap 9.0 mmol/L (3-11) Est Creatinine Clear Calc Drug Dose 88.2 ml/min Estimated GFR () 112.9 Estimated GFR (Non- 97.4 BUN/Creatinine Ratio 17.5 (10-20) Calcium Level 9.3 mg/dl (8.5-10.1) Total Bilirubin 0.4 mg/dl (0.2-1) Aspartate Amino Transf (AST/SGOT) 13 U/L (15-37) Alanine Aminotransferase (ALT/SGPT) 26 U/L (12-78) Alkaline Phosphatase 94 U/L (45-117) Total Protein 7.5 gm/dl (6.4-8.2) Albumin 4.2 gm/dl (3.4-5.0) Globulin 3.3 gm/dl (2.5-4.0) Albumin/Globulin Ratio 1.3 (0.9-2) Medications Administered Medications (Trade) Dose Ordered Sig/Kimberly Route Start Time Stop Time Status Last Admin Dose Admin Hydromorphone HCl (Dilaudid Inj) 0.5 mg NOW STAT IV 04/16/17 15:38 04/16/17 15:40 DC 04/16/17 15:59 0.5 MG Fentanyl Citrate (Fentanyl Inj) 50 mcg NOW STAT IV 04/16/17 17:52 04/16/17 17:53 DC 04/16/17 18:58 50 MCG Lorazepam 0.5 mg/ Syringe 0.5 ml @ 0.5 mls/min NOW STAT IV 04/16/17 18:17 04/16/17 18:18 DC 04/16/17 18:17 0.5 MLS/MIN Oxycodone HCl (Roxicodone Immediate Rel 5MG Home Pack) 1 homepack UD STAT PO 04/16/17 20:14 04/16/17 20:15 DC 04/16/17 20:14 1 HOMEPACK Medical Decision Patient was seen and evaluated as above. She presents to us today with right knee pain. She appears to be exquisitely tender and in pain upon my examination. IV access was initiated, and the above workup was performed. She is postoperative therefore DVT was a concern as well. Ultrasound was negative. X-ray negative. MRI was obtained and reveals meniscal tear. She was given Dilaudid for pain as well as Ativan for the MRI to be less anxious as well as fentanyl following the MRI. She still was experiencing a fair deal of pain subjectively. CBC reveals no concern of leukocytosis or anemia. Coags were normal. Metabolic panel reveals no evidence of kidney or liver failure. I did discuss the case with the on-call orthopedic surgeon for the group of which referred the patient here today. I spoke with Dr. Amin. It was felt the patient could be managed in the outpatient setting. To admit the patient for a meniscal tear would not necessitate emergent surgery. I believe the patient is a higher risk of acquiring pneumonia as well as influenza by being admitted. A knee immobilizer was tried and was changed to an [place] bandage. She then prefer the knee immobilizer. She was given a walker and was able to ambulate slightly. She was still experiencing pain but will be given a short prescription for home. She will follow-up with orthopedics. She appears stable for outpatient management. She was educated upon management, educated upon worrisome symptoms in which to return, had questions answered at discharge , and was discharged home in good condition. In the evaluation and treatment of this patient, the following differential diagnoses were considered: Patellar Fracture, Tibial Plateau Fracture, Distal Femur Fracture, ACL Injury, PCL Injury, Collateral Ligament Injury, Pes Anserine Bursitis, Maisonneuve Fracture. No red flag identified in the [place] drug monitoring system. Impression Primary Impression: Knee pain Additional Impression: Acute meniscal tear of knee Departure Information Dispostion Home / Self-Care Condition GOOD Prescriptions Oxycodone Ir (Roxicodone Ir) 5 Mg Tab 1-2 TAB PO Q4H Y for Pain, #20 TAB For Initial Treatment Prov: Shaun Dyson PA-C 04/16/17 Referrals Kevin Webb M.D. (PCP) Kishan Amin MD Patient Instructions My [facility] Additional Instructions You have been treated in the Emergency Department for Knee Pain. You have received pain medicine in the emergency department which impairs your ability to operate a vehicle. It is illegal for you to drive after receiving these medicines. You have been prescribed Oxy IR to be used for pain control. This is a narcotic medication. You cannot drive or consume alcohol while on this medicine. This medicine should only be used for pain that cannot be controlled with over-the- counter pain medicines. For pain control, you can use the following [id number] medicines (if >12 yo): - Regular strength (325mg/tab) Tylenol (acetaminophen) 2 tabs every 4-6 hours as needed. Do not exceed 12 tablets in a 24 hour period. Avoid taking more than 3 grams (3000 mg) of Tylenol per day. This includes any other sources of acetaminophen you may take on a regular basis. - Regular strength (200 mg/tab) Advil (ibuprofen) 1-2 tabs every 4-6 hours as needed. Do not exceed a dose of 3200 mg per day. If this is a recent injury (<24 hrs), ice can be applied to the area of pain for the first 3 days to help decrease pain and inflammation. Ice massages can be performed by freezing water in a paper cup, peeling back the cup to expose the ice and then massaging over the affected area. You have been provided the number for an Orthopaedic Surgeon. You should call this number as soon as possible to establish a follow-up visit from today's Emergency Department visit. Keep the knee brace in place until cleared by Orthopedics. Use the crutches/ walker you have been provided to keep ALL weight off of the knee until weight bearing is tolerable. Return to the Emergency Department if your current symptoms worsen despite treatment course outlined above. Problem Qualifiers
[2017-04-16] MEDS ORDERED: OXYC-90 PO (20:13)
[2017-04-16] MEDS ORDERED: OXYCODONE IR HOME PACK PO STA (20:14)
[2017-04-16 20:42] VITALS: BP 148/91; PULSE 84; O2SAT 99
[2017-04-16] MEDS ORDERED: MONT1TAB3 PO (21:13)
[2017-04-16] MEDS ORDERED: FLVHFA110 INH (21:13)
[2017-04-20] MEDS ORDERED: FLUT0.15 (10:19)
[2017-04-20] MEDS ORDERED: MONT1TAB3 PO (10:20)
[2017-04-20] MEDS ORDERED: PRLSR20 PO (10:22)
[2017-04-20] MEDS ORDERED: CYCL5TAB PO (10:22)
[2017-05-29] MEDS ORDERED: IPRA-64 INH (22:34)
== END 2017-04-16 20:44 | disposition home or self-care (01) ==
LOC: C.EDB 15:16 → C.EDD 20:44
DX: S83.206A Unspecified tear of unspecified meniscus, current injury, right knee, initial encounter (principal); X58.XXXA Exposure to other specified factors, initial encounter; Z90.710 Acquired absence of both cervix and uterus; Z90.49 Acquired absence of other specified parts of digestive tract; Z90.89 Acquired absence of other organs; Z83.3 Family history of diabetes mellitus; Z82.49 Family history of ischemic heart disease and other diseases of the circulatory system

== ENCOUNTER → 2017-04-20 | Day surgery (SDC) | payer BC ==
[~2017-04-20] VITALS: Ht 157.5 cm; Wt 73.6 kg
[~2017-04-20] MED LIST changes: +ACET-1256 PO; -ALBUAER INH; +ATROPINE SULFATE 0.1 MG/ML 5ML SYR IV PRN; +BUPIVACAINE/EPINEPHRINE 0.5% MPF 1:200,000 30 ML VIAL ONE; +CEFAZOLIN 2000MG IV PUSH 10 ML IV SCH; +CEFAZOLIN SOD 2000MG/15 ML IV PUSH IV ONE; +CYCL5TAB PO; +DEXAMETHASONE SOD INJ 4 MG/ML VIAL ONE; +DOCU100C PO; +ESMOLOL HCL 10 MG/ML 10 ML VIAL ONE; +EpHEDrine SULFATE INJ 50 MG/ML AMP IV PRN; +EpINEphrine HCL INJ 1 MG/ML 1ML SYRINGE ONE; +FENTANYL CITRATE INJ 50 MCG/1 ML 2 ML VIAL ONE; +FLUT0.15; +FLVHFA110 INH; +GLUC1CAP33 PO; +HYDROmorphone INJ 1 MG/ML SYR IV PRN; +IBUP-103 PO; +IPRA-64 INH; +KETOROLAC TROMETHAMINE 30 MG/ML VIAL ONE; +LACTATED RINGER'S 1000ML 1,000 ML IV SCH; +LIDOCAINE HCL 1% 20 ML VIAL ONE; +LIDOCAINE HCL 2% 2 ML VIAL (20MG/ML) ONE; +METOCLOPRAMIDE HCL INJ 5 MG/ML 2 ML VIAL ONE; +MIDAZOLAM HCL 1 MG/ML 2ML VIAL ONE; -MISCCAP80 PO; +MONT1TAB3 PO; +MULT-506 PO; +MoRPHine SULFATE 2 MG/ML CARP IV PRN; +MoRPHine SULFATE 4 MG/ML 1 ML CARP\\VIAL IV PRN; +NURSING ICU ELECTROLYTE ORDER ONE; +NURSING VERBAL MED ORDER ONE; +ONDANSETRON INJ 2 MG/ML 2 ML VIAL IV PRN; +ONDANSETRON INJ 2 MG/ML 2 ML VIAL ONE; +OXYC-90 PO; +OXYCODONE/ACETAMINOPHEN 5-325 TAB PO PRN; +PATIENT'S HEIGHT AND/OR WEIGHT NEEDED SCH; +POLY335019 PO; +PRLSR20 PO; +PROMETHAZINE HCL INJ 12.5 MG in SODIUM CHLORIDE 0.9% 50ML 50 ML IV PRN; +PROPOFOL IV EMULSION 10 MG/ML 20 ML VIAL IV ONE; -RANI150T3 PO; +RANITIDINE HCL 25 MG/ML INJ ONE; +ROCURONIUM BROMIDE 10 MG/ML 5 ML VIAL IV ONE; +SUCCINYLCHOLINE CHLORIDE 20 MG/ML 10 ML VIAL IV ONE
--- NOTE | 2017-04-20 09:38 | History and Physical ---
History & Physical Date & Time of Service: Apr 20, 2017 at 09:26 Chief Complaint: Right Knee Lateral Meniscus Tear Primary Care Physician: Kevin Webb M.D. History of Present Illness Source: patient Patient is a 46-year-old pleasant female who is here today for preoperative history and physical. She is scheduled to have a right knee arthroscopy lateral meniscal repair versus debridement with Dr. Amin on April 20, 2017, later this morning. She states that she injured her right knee back in October when her dog ran into her right knee and hyperextended it. She had been doing physical therapy and other conservative treatment which had not really responded well. She states that her knee was feeling slightly better. She was able to function, though she continued to have pain. She states that on Wednesday she was getting up off of her so far and had immediate pain in her right knee and a locking episode. She states that ever since then her knee has been locking and unlocking. This been very uncomfortable. She is gone to the emergency room as required pain medication over the weekend due to her right knee. She has been taking Flexeril and oxycodone 5 mg to help with her pain. She is in a knee immobilizer. She is eating a walker to assist with ambulation. She states that her knee is extremely painful. She was seen and evaluated by Dr. Amin today. She had an MRI done on March 02, 2017 which showed a lateral meniscal tear which is now causing locking symptoms. Due to her acute locking episodes and increased pain in her right knee surgical intervention was recommended. She agrees to proceed with surgery and is scheduled for right knee arthroscopy, meniscal repair versus debridement, chondroplasty versus microfracture and exam under anesthesia of her right knee with Dr. Amin later this morning April 20, 2017 at the [facility] surgery [place]. Past Medical/Surgical History Medical Problems: (1) Endometriosis Status: Chronic (2) Ovarian cyst Status: Resolved 3. Acid reflux/heartburn 4. History of a regular heartbeat or palpitations. She states that she really has not had anything recently and thought maybe it was from her Spiriva. She did have an episode of some irregular heartbeats during her last procedure on March 2017. 5. Asthma 6. Anxiety 7. Migraines 8. TMJ 9. Lower back pain Surgical Problems: (1) S/P cholecystectomy Status: Resolved 2. Status post hysterectomy and appendectomy April 01, 2017 at [facility] 3. Ovarian cyst removed 4. Cholecystectomy Family History Diabetes mellitus FH: lung disease FHx: gallbladder disease Hypertension Kidney disease Social History Smoking Status: Never Smoker Alcohol Use: none Drug Use: none Marital Status: Occupational Status: employed (Currently out of work due to recent surgery) Immunizations History of Influenza Vaccine: Yes History of Tetanus Vaccine?: Unknown History of Pneumococcal: No History of Hepatitis B Vaccine: Unknown Multi-Drug Resistant Organisms History of MDRO: No Allergies Coded Allergies: Methylprednisolone (Verified Allergy, Severe, IRREGULAR HR, HIGH BP, ) Sulfamethoxazole w/Trimethoprim (Verified Allergy, Severe, ITCHY, 10/26/16) Penicillins (Verified Allergy, Mild, RASH, 10/26/16) RASH Cat Dander (Verified Allergy, Unknown, 10/26/16) Milk (Verified Allergy, Unknown, 10/26/16) Home Medications Scheduled Fluticasone Propionate (Flovent Hfa), 2 PUFFS INH BID Montelukast Sodium (Singulair), 10 MG PO DAILY Scheduled PRN Acetaminophen (Tylenol), 1,000 MG PO Q6H PRN for Pain Docusate Sodium (Stool Softener), 100 MG PO BID PRN for Constipation Ibuprofen Tab (Advil), 400-600 MG PO Q6H PRN for Pain Oxycodone Ir (Roxicodone Ir), 1-2 TAB PO Q4H PRN for Pain Polyethylene Glycol 3350 (Miralax), 17 GM PO DAILY PRN for Constipation Review of Systems Constitutional: No fever, No chills, No weight loss, No fatigue Eyes: No worsening of vision, No redness ENT: No hearing loss, No sore throat, No tinnitus Respiratory: No cough, No sputum, No wheezing, No shortness of breath Cardiovascular: + palpitations (Has not noticed anything recently), No chest pain, No orthopnea, No edema Abdomen: No pain, No nausea, No vomiting, No diarrhea Musculoskeletal: + joint pain (Right knee), No swelling, No calf pain Genitourinary - Female: + problem reported (Status post [id number]), No dysuria, No urinary frequency, No urinary urgency Neurologic: No memory loss, No numbness/tingling Psychiatric: + anxiety, No depression symptoms Hematologic / Lymphatic: No abnormal bleeding/bruising (States bruises easily) , No clotting problems Integumentary: No rash, No itch Allergic / Immunologic: + seasonal allergies, No frequent infections, No poor healing Physical Exam General Appearance: WD/WN, no apparent distress Head: normocephalic, atraumatic Eyes: normal inspection, PERRL, EOMI ENT: normal ENT inspection, hearing grossly normal, TMs normal, pharynx normal Neck: supple, no carotid bruits, trachea midline Respiratory/Chest: chest non-tender, lungs clear, normal breath sounds, no respiratory distress, no accessory muscle use Cardiovascular: regular rate, rhythm, no edema, no murmur, normal peripheral pulses Abdomen/GI: normal bowel sounds, non tender, soft Extremities/Musculoskelatal: no calf tenderness, normal capillary refill, no pedal edema, + pertinent finding (Strength 5/5. Lateral joint line tenderness with palpation. Ligamentous exam not performed today to to her pain and lack of range of motion. Range of motion is flexion to 80-90. No effusion of her right knee.) Neurologic/Psych: no motor/sensory deficits, alert, normal mood/affect, oriented x 3 Skin: normal color, warm/dry, no rash Diagnostics Diagnostic Radiology R KNEE 3 VIEWS - April 16, 2017 CLINICAL HISTORY: R leg pain, recent surgery pain COMPARISON: None. DISCUSSION: The bones and joint spaces appear intact. There is no evidence of fracture, dislocation or bony disease. There is no evidence for soft tissue swelling. IMPRESSION: Negative study. R LOWER EXT JOINT WITHOUT - April 16, 2017 CLINICAL HISTORY: R knee pain, refered by ortho for MRI TECHNIQUE: Multiaxial MRI acquisition COMPARISON STUDY: 05/02/2016 FINDINGS: Signal characteristics of the osseous structures again indicate minimal degenerative change of the subchondral component of the mid tibial plateau. This is a nonacute finding. There is a displaced component of the lateral meniscus at the posterior aspect intercondylar notch best seen sagittal images 10 and coronal image 19. This appears to relate to a displaced bucket-handle tear of the post operative lateral meniscus. Medial meniscus shows minimal intrameniscal signal but no significant medial meniscal tear is appreciated. Articular services appear to be intact. The collateral ligament complexes are intact. Medial and lateral patellar retinaculum are unremarkable. There is no evidence for significant popliteal cyst nor is there significant joint effusion. Anterior and posterior cruciate ligaments are intact. Patellar articulating surface is intact. IMPRESSION: 1. Disruption of the postoperative lateral meniscus with a displaced bucket-handle tear located at the posterior aspect of the intercondylar notch. 2. Minimal degenerative changes unaltered from the prior study. 3. Remainder the study is unremarkable. Impression Assessment and Plan Assessment: Right knee pain due to displaced, locked, bucket-handle lateral meniscal tear Plan: Patient is scheduled for right knee arthroscopy, exam under anesthesia, meniscal repair versus debridement, chondroplasty versus microfracture with Dr. Amin on April 20, 2017. She is currently nothing by mouth. She does not need any preoperative lab work, EKG, or medical clearance prior to surgery. Report to the surgery center after our visit today. Risks and complications were explained to the patient and include but are not limited to infection, bleeding, scarring, nerve and blood vessel damage, wound problems, weakness, stiffness, incomplete relief of symptoms, blood clots, embolisms, arthritis, heart attack, stroke, and . Informed consent was obtained by Dr. Amin. He was instructed on aspirin 325 mg twice a day 21 days after surgery for DVT prophylaxis. She does have oxycodone at home to take after surgery. She states that she has enough of this to get her through. The [place] PDMP was checked with no issues identified. She will follow up in physical therapy 2-3 days after surgery. She does have a walker that she will use after surgery. Postoperative course was discussed briefly. She will follow up with Dr. Amin 10-15 days after surgery for suture removal. All questions were answered today.
--- NOTE | 2017-04-20 09:46 | History & Physical Bridge - [place] ---
H&P Re-Evaluation Bridge Note: I have examined the patient, reviewed the History & Physical and in the interval since the performance of the History & Physical I have noted the following changes of clinical significance: No changes noted
[2017-04-20 10:05] VITALS: Ht 157.5 cm; Wt 73.6 kg
--- NOTE | 2017-04-20 11:45 | Discharge Instructions-SurgCtr ---
Discharge Instructions Date of Service Apr 20, 2017. Visit Reason for Visit: Right Knee Lateral Meniscus Tear Discharge Discharge Diagnosis / Problem: Status post right knee Lateral Meniscus repair Discharge Goals Goal(s): Decrease discomfort, Improve function, Increase independence Activity Recommendations Activity Limitations: per Instructions/Follow-up section May Resume Sexual Activity: when tolerated Shower/Bathe: may shower/bathe in 3 days Driving or Machine Use: Not while on Narcotics or in brace Weightbearing Status: Right non-weightbearing Anesthesia . Post Anesthesia Instructions: If you have had General Anesthesia or IV Sedation: * Do not drive today. * Resume driving when surgeon permits. * Do not make important decisions or sign legal documents today. * Call surgeon for: 1. Temperature elevations greater than 101 degrees F. 2. Uncontrollable pain. 3. Excessive bleeding. 4. Persistent nausea and vomiting. 5. Medication intolerance (nausea, vomiting or rash). * For nausea and vomiting use only clear liquids such as: tea, soda, bouillon until nausea subsides, then gradually increase diet as tolerated. * If you have any concerns or questions, call your surgeon's office. If physician is unavailable and it is an emergency, call 911 or go to the nearest emergency room. . Instructions / Follow-Up Instructions / Follow-Up Dr. Amin in 10-15 days. PT in 2-3 days. Diet Recommendations Home Diet: resume previous diet Procedures Procedures Performed: Right Knee Arthroscopy, Medial Meniscus Repair, Chondroplasty, Exam Under Anesthesia Pending Studies Studies pending at discharge: no Medical Emergencies . Who to Call and When: Medical Emergencies: If at any time you feel your situation is an emergency, please call 911 immediately. . Non-Emergent Contact Non-Emergency issues call your: Surgeon Call Non-Emergent contact if: temperature is above 101.5, your pain is worsening, wound has increased drainage, wound has increased redness . . "Provider Documentation" section prepared by Kishan Amin. .
--- NOTE | 2017-04-20 11:46 | [facility] Post Operative Brief Note ---
Immediate Operative Summary Operative Date Apr 20, 2017. Pre-Operative Diagnosis Right Knee Lateral Meniscus Tear Post-Operative Diagnosis Same + Chondromalacia Procedure(s) Performed 1) Right Knee Arthroscopy, Medial Meniscus Repair. 2) Chondroplasty Trochlea, LFC. 3) Exam Under Anesthesia. Surgeon Dr. Amin Acid Bleacher Surgeon(s) Dr. Lisa Dubon, Fellow Estimated Blood Loss 3 ML Findings As above. Fluids (cc crystalloids) 1000 Specimens None Drains n/a Anesthesia GET Complication(s) None Disposition Recovery Room / PACU (Stable)
[2017-04-20] MEDS: FENTANYL CITRATE INJ 50 MCG/1 ML 2 ML VIAL IV PRN ×4 (12:06→12:36)
--- NOTE | 2017-04-20 13:16 | Anesthesiology Progress Note ---
Anesthesia Post Op Note Date & Time Apr 20, 2017 at 13:15 Vital Signs Pain Intensity: 2 Vital Signs Past 12 Hours Date Time Temp Pulse Resp B/P (MAP) Pulse Ox O2 Delivery O2 Flow Rate FiO2 04/20/17 12:47 114 12 04/20/17 12:47 113 12 100 18 12:47 113 12 100 18 12:47 114 12 04/20/17 12:45 164/95 04/20/17 12:45 164/95 04/20/17 12:45 36.8 114 16 164/95 100 Room Air 04/20/17 12:42 111 11 100 04/20/17 12:42 113 11 04/20/17 12:42 113 11 04/20/17 12:42 111 11 100 04/20/17 12:41 153/83 04/20/17 12:41 153/83 04/20/17 12:37 123 15 04/20/17 12:37 124 15 100 04/20/17 12:37 124 15 100 04/20/17 12:37 123 15 04/20/17 12:36 124 16 04/20/17 12:36 126 16 158/89 100 04/20/17 12:31 125 14 04/20/17 12:31 124 14 153/85 100 04/20/17 12:26 128 15 143/102 100 04/20/17 12:26 128 15 04/20/17 12:21 113 10 100 04/20/17 12:21 114 10 04/20/17 12:20 156/94 04/20/17 12:16 117 7 04/20/17 12:16 117 7 152/102 100 04/20/17 12:11 110 9 218 12:11 109 9 100 18 12:10 109 9 162/97 100 18 12:10 108 9 04/20/17 12:06 140/93 04/20/17 12:05 107 11 04/20/17 12:05 105 11 100 18 12:00 109 16 04/20/17 12:00 108 16 124/96 100 218 11:56 148/96 04/20/17 11:55 37.1 107 12 148/96 100 Mask 6 04/20/17 11:55 109 100 04/20/17 11:55 109 04/20/17 10:14 36.9 82 16 153/79 (103) 99 Room Air Notes Mental Status: alert / awake / arousable, participated in evaluation Pt Amnestic to Procedure: Yes Nausea / Vomiting: adequately controlled Pain: adequately controlled Airway Patency, RR, SpO2: stable & adequate BP & HR: stable & adequate Hydration State: stable & adequate Anesthetic Complications: no major complications apparent
[2017-04-20 14:06] VITALS: BP 127/85; PULSE 106; TEMP 36.6; O2SAT 97
--- NOTE | 2017-04-20 16:32 | [facility] Operative Report ---
Operative Report Operative Date Apr 20, 2017. Pre-Operative Diagnosis Right Knee Lateral Meniscus Tear Post-Operative Diagnosis Same + Chondromalacia Procedure(s) Performed 1) Right Knee Arthroscopy, Medial Meniscus Repair. 2) Chondroplasty Trochlea, LFC. 3) Exam Under Anesthesia. Surgeon Dr. Amin Pmp Surgeon(s) Dr. Lisa Dubon, Fellow Estimated Blood Loss 3 ML Findings The right knee was examined under anesthesia. Range of motion was 0-135 degrees. Ligamentous examination exhibited: stable Everardo, posterior drawer, varus and valgus stress at 0 & 30 degrees. ARTHROSCOPIC FINDINGS: 1) PATELLOFEMORAL JOINT: The articular cartilage of the Patella had some Outerbridge type 1 changes most notably in the medial patellar facet, and Trochlea had some type II changes. 2) GUTTERS: No loose bodies. 3) MEDIAL COMPARTMENT: The articular cartilage of the femur and Tibia was intact. The medial meniscus was intact . 4) ACL/PCL: They were both visualized and probed to be intact. 5) LATERAL COMPARTMENT: The lateral compartment was then entered in a figure-of- four position. The femoral articular cartilage had some type II changes most medially and tibial articular cartilage was normal. The lateral meniscus had noted degeneration about the anterior third. There was some fraying along the periphery at the apex and posteriorly. There was a longitudinal tear posteriorly toward the popliteal hiatus. There was some increased excursion of the lateral meniscus, but I was unable to re-create the bucket handle tear. Fluids (cc crystalloids) 1000 Specimens None Drains n/a Anesthesia GET Complication(s) None Disposition Recovery Room / PACU Implants Meniscal Cinch x 1 (Arthrex) Indications This is a 46-year-old female who has clinical and MRI findings consistent with lateral meniscus tear. I recommended that a right knee arthroscopy be performed with meniscus repair vs debridement, possible chondroplasty versus microfracture. The patient understands the risks of surgery, which include but not limited to: bleeding, infection, re-operation, damage to nerves and arteries , continued knee pain, progression of OA, DVT, and a 2-5% risk of becoming worse after surgery. The patient understands all of these instructions and explanations, all of his questions have been satisfactorily addressed and the patient has elected to proceed. Informed consent was signed. Description of Procedure The patient was taken to the Operating Room and placed in the supine position after general anesthetic was administered. My initials and a multidisciplinary time-out were used to identify the right leg as the correct operative limb. Prior to the incision, 2 grams of intravenous Ancef was given. The right knee was then injected with 20cc of a 50:50 mix of 1% Lidocaine plain and 0.5% Bupivacaine with epinephrine in a sterile fashion using the superolateral portal. The right leg was then prepped and draped in a standard sterile fashion. The anterolateral, anteromedial, and superolateral portals were injected with the 50:50 mixture noted above, for a total of 10cc, in the standard fashion. An anterolateral arthroscopic portal was established with an 11-blade. Next, the arthroscope was introduced into the knee. A diagnostic arthroscopy commenced anteromedial portal was established under direct visualization using a spinal needle followed by an 11 blade in the standard fashion. The above findings were observed during the diagnostic arthroscopy. The anterior fat pad were debrided as they were encounter with mechanical shaver. The articular cartilage damage was debrided back to stable margins as they were encountered with mechanical shaver. The lateral meniscus tear was evaluated and found to be reparable. The fraying at the apex was debrided back to stable margin with mechanical shaver. The capsule was prepared with a combination of mechanical shaver and mace rasp. A single meniscal cinch was placed in a horizontal mattress fashion posteriorly. The meniscus was then probed and found to be stable. The knee was also brought through full range of motion and the meniscus remained stable. A 20 all was used within the intercondylar notch to stimulate healing of the meniscal repair. The knee was copiously irrigated. The arthroscopic instruments were then removed. The portals were closed with 3-0 Prolene in a standard fashion. The wound was dressed with Xeroform gauze, sterile gauze, ABDs, sterile Webril, and a foot to thigh Carlitos bandage. The patient was then transferred to the Recovery Room in stable condition. The sponge and needle counts were correct. Post-op Instructions: The patient will be NWB with the brace locked in extension for 2 weeks. The patient may remove the operative dressing on Post-Op Day #2 and apply Band-Aids to the wounds. The patient may shower in 72 hours and is to wear the MILAN for 2 weeks on the operative limb. The patient is to use the pain medicine as needed and take the ASA for 2 weeks. The patient was also given a handout for home quad strengthening and seated self-assisted ROM exercises, which they may begin tomorrow. The patient was given a prescription for PT and is scheduled for an appointment later this week. The patient is to follow up with me in 10-15 days. I attest to the content of the Intraoperative Record and any orders documented therein. Any exceptions are noted below.
== END | disposition home or self-care (01) ==
LOC: X.SURG 09:32
PROVIDERS: ATTEND Orthopaedic Surgery Sports Medicine
DX: S83.281A Other tear of lateral meniscus, current injury, right knee, initial encounter (principal); M94.261 Chondromalacia, right knee; W54.1XXA Struck by dog, initial encounter; K21.9 Gastro-esophageal reflux disease without esophagitis; J45.909 Unspecified asthma, uncomplicated; Z90.49 Acquired absence of other specified parts of digestive tract; Z90.710 Acquired absence of both cervix and uterus; Z90.89 Acquired absence of other organs; Z83.3 Family history of diabetes mellitus; Z82.49 Family history of ischemic heart disease and other diseases of the circulatory system; Z88.0 Allergy status to penicillin; Z88.2 Allergy status to sulfonamides

== ENCOUNTER → 2017-05-14 | Outpatient (CLI) | payer BC ==
[~2017-05-14] MED LIST changes: -ATROPINE SULFATE 0.1 MG/ML 5ML SYR IV PRN; -BUPIVACAINE/EPINEPHRINE 0.5% MPF 1:200,000 30 ML VIAL ONE; -CEFAZOLIN 2000MG IV PUSH 10 ML IV SCH; -CEFAZOLIN SOD 2000MG/15 ML IV PUSH IV ONE; -DEXAMETHASONE SOD INJ 4 MG/ML VIAL ONE; -ESMOLOL HCL 10 MG/ML 10 ML VIAL ONE; -EpHEDrine SULFATE INJ 50 MG/ML AMP IV PRN; -EpINEphrine HCL INJ 1 MG/ML 1ML SYRINGE ONE; -FENTANYL CITRATE INJ 50 MCG/1 ML 2 ML VIAL ONE; -GLUC1CAP33 PO; -HYDROmorphone INJ 1 MG/ML SYR IV PRN; -IPRA-64 INH; -KETOROLAC TROMETHAMINE 30 MG/ML VIAL ONE; -LACTATED RINGER'S 1000ML 1,000 ML IV SCH; -LIDOCAINE HCL 1% 20 ML VIAL ONE; -LIDOCAINE HCL 2% 2 ML VIAL (20MG/ML) ONE; -METOCLOPRAMIDE HCL INJ 5 MG/ML 2 ML VIAL ONE; -MIDAZOLAM HCL 1 MG/ML 2ML VIAL ONE; -MULT-506 PO; -MoRPHine SULFATE 2 MG/ML CARP IV PRN; -MoRPHine SULFATE 4 MG/ML 1 ML CARP\\VIAL IV PRN; -NURSING ICU ELECTROLYTE ORDER ONE; -NURSING VERBAL MED ORDER ONE; -ONDANSETRON INJ 2 MG/ML 2 ML VIAL IV PRN; -ONDANSETRON INJ 2 MG/ML 2 ML VIAL ONE; -OXYC-90 PO; +OXYC1TAB3 PO; -OXYCODONE/ACETAMINOPHEN 5-325 TAB PO PRN; -PATIENT'S HEIGHT AND/OR WEIGHT NEEDED SCH; -PROMETHAZINE HCL INJ 12.5 MG in SODIUM CHLORIDE 0.9% 50ML 50 ML IV PRN; -PROPOFOL IV EMULSION 10 MG/ML 20 ML VIAL IV ONE; -RANITIDINE HCL 25 MG/ML INJ ONE; -ROCURONIUM BROMIDE 10 MG/ML 5 ML VIAL IV ONE; -SUCCINYLCHOLINE CHLORIDE 20 MG/ML 10 ML VIAL IV ONE
--- NOTE | 2017-05-14 13:35 | DIAGNOSTIC IMAGING REPORT ---
THREE-PHASE NUCLEAR BONE SCAN OF THE LOWER EXTREMITIES; WHOLE BODY BONE SCAN CLINICAL HISTORY: Chronic right leg pain. Reported history of meniscal repair in the right knee performed April of 2017. COMPARISON STUDY: Radiographs of the right knee dated 04/16/2017. Abdominal CT dated 10/26/2016. MRI of the right knee dated 04/16/2017. TECHNIQUE: Following the IV administration of 25.5 mCi of technetium 99m MDP, three-phase bone scan of the lower extremity was performed. Anterior anterior and posterior flow and blood pool phase imaging of the knees was performed. Bone phase images of the lower extremities were acquired at three hours in multiple obliquities. Whole body bone scan imaging was also performed anteriorly and posteriorly at 3 hours. FINDINGS: There is no hyperemia identified within the knees on the flow images. There is mild hyperemia seen in the right knee on the blood pool phase imaging. The bone phase imaging there is abnormal tracer deposition identified around the right knee involving the distal femur, tibial plateau, and patella. No abnormal tracer deposition is identified in the left knee. On the whole body imaging, there is no abnormal osseous tracer deposition identified typical in appearance for bony metastatic disease. Mild and typically degenerative uptake is identified in the shoulders and right ankle. There is expected excreted activity within the renal collecting system and bladder. IMPRESSION: 1. There is mild blood pool activity around the right knee as well as bone phase activity involving the right knee. This is nonspecific and likely related to recent surgery. Clinical correlation will be essential. 2. Additional low level foci of typically degenerative activity as above. Electronically signed by: Marshall Mcfadden M.D. 05/14/2017 1:34 PM Dictated Date/Time: 05/14/2017 1:27 PM
== END | disposition home or self-care (01) ==
LOC: C.NUCL 09:15
PROVIDERS: ATTEND Orthopaedic Surgery Sports Medicine
DX: G90.50 Complex regional pain syndrome I, unspecified (principal)

== ENCOUNTER 2017-05-29 19:30 | Emergency (ER) | payer BC ==
[~2017-05-29] VITALS: Ht 157.5 cm; Wt 76.5 kg
[2017-05-29 19:33] VITALS: Ht 157.5 cm; Wt 76.5 kg
[2017-05-29] MEDS ORDERED: ONDANSETRON INJ 2 MG/ML 2 ML VIAL IV STA (19:49)
[2017-05-29] MEDS ORDERED: KETOROLAC TROMETHAMINE 30 MG/ML VIAL IV STA (19:49)
[2017-05-29] MEDS ORDERED: ALBUTEROL 0.5% NEB SOLN 2.5 MG/0.5 ML VIAL INH STA (19:49)
[2017-05-29] MEDS ORDERED: SODIUM CHLORIDE 0.9% 500ML 500 ML IV STA (19:49)
[2017-05-29] MEDS ORDERED: ACETAMINOPHEN 500 MG TAB PO STA (19:49)
--- NOTE | 2017-05-29 19:53 | EMERGENCY ROOM VISIT NOTE ---
History First contact with patient: 19:36 Chief Complaint: FLU LIKE SX Stated Complaint: POSSIBLE FLU History of Present Illness The patient is a 46 year old female who presents to the Emergency Room with complaints of flulike symptoms that started this morning. She has had a productive cough with yellow sputum. She has also had a fever as high as 102 F. The patient has a history of asthma. She took her inhaler with minimal relief. She is also taking ibuprofen with minimal relief of her symptoms. Her has had similar symptoms. Review of Systems 10 system review performed and negative unless noted in HPI or below Past Medical/Surgical History Medical Problems: (1) Endometriosis (2) Ovarian cyst Surgical Problems: (1) S/P cholecystectomy Status post hysterectomy and knee surgery, asthma Family History Diabetes mellitus FH: lung disease FHx: gallbladder disease Hypertension Kidney disease Social History Smoking Status: Never Smoker Drug Use: none Marital Status: Housing Status: lives with family Occupation Status: employed Current/Historical Medications Scheduled Fluticasone Propionate (Flovent Hfa), 2 PUFFS INH BID Glucosamine-Chondroitin (Glucosamine & Chondroitin 500-400 mg), 1 TAB PO DAILY Ipratropium-Albuterol (Duoneb), 1 TREATMENT INH Q4H Montelukast Sodium (Singulair), 10 MG PO DAILY Multivitamin (Multivitamin), 1 TAB PO DAILY Omeprazole (Prilosec), 20 MG PO DAILY Scheduled PRN Acetaminophen (Tylenol), 1,000 MG PO Q6H PRN for Pain Docusate Sodium (Stool Softener), 100 MG PO BID PRN for Constipation Ibuprofen Tab (Advil), 400-600 MG PO Q6H PRN for Pain Polyethylene Glycol 3350 (Miralax), 17 GM PO DAILY PRN for Constipation Physical Exam Vital Signs Date Time Temp Pulse Resp B/P (MAP) Pulse Ox O2 Delivery O2 Flow Rate FiO2 05/29/17 22:08 37.0 74 16 118/64 98 05/29/17 21:20 37.1 121 20 108/46 99 05/29/17 19:33 38.2 126 18 126/71 97 Room Air Physical Exam VITALS: Vitals are noted on the nurse's note and reviewed by myself. Vital signs stable. GENERAL: 46-year-old female, moderately ill in appearance, SKIN: The skin was without rashes, erythema, edema, or bruising. HEAD: Normocephalic atraumatic. MOUTH: Mucous membranes moist. Tonsils are not enlarged. Pharynx without erythema or exudate. Uvula midline. Airway patent. Tongue does not deviate. NECK: Supple without nuchal rigidity. No lymphadenopathy. Cervical spine is nontender. No JVD. HEART: Tachycardic, regular rhythm without murmurs gallops or rubs. LUNGS: Clear to auscultation bilaterally without wheezes, rales or rhonchi. No accessory muscle use. ABDOMEN: Positive bowel sounds x 4.Soft, nontender, without organomegaly. No guarding or rebound tenderness. MUSCULOSKELETAL: No muscle atrophy, erythema, or edema noted. Brace noted to the right knee Strength 5/5 throughout. NEURO: Patient was alert and oriented to person place and time. Normal sensation to touch. No focal neurological deficits. Medical Decision & Procedures ER Provider Diagnostic Interpretation: CXR IMPRESSION: 1. No acute cardiopulmonary disease. Electronically signed by: Clarence Chaves M.D. 05/29/2017 8:48 PM Dictated Date/Time: 05/29/2017 8:48 PM The status of this report is Signed. Draft = Not yet reviewed or approved by Radiologist. Signed = Reviewed and approved by Radiologist. Laboratory Results 05/29/17 20:00 Red Blood Count 4.49, Mean Corpuscular Volume 91.3, Mean Corpuscular Hemoglobin 30.7, Mean Corpuscular Hemoglobin Concent 33.7, Mean Platelet Volume 9.8, Neutrophils (%) (Auto) 86.3, Lymphocytes (%) (Auto) 6.3, Monocytes (%) (Auto) 6.6, Eosinophils (%) (Auto) 0.2, Basophils (%) (Auto) 0.2, Neutrophils # (Auto) 7.73, Lymphocytes # (Auto) 0.56, Monocytes # (Auto) 0.59, Eosinophils # (Auto) 0.02, Basophils # (Auto) 0.02 05/29/17 20:00 Test 05/29/17 20:00 05/29/17 20:37 White Blood Count 8.96 K/uL (4.8-10.8) Red Blood Count 4.49 M/uL (4.2-5.4) Hemoglobin 13.8 g/dL (12.0-16.0) Hematocrit 41.0 % (37-47) Mean Corpuscular Volume 91.3 fL (80-100) Mean Corpuscular Hemoglobin 30.7 pg (25-34) Mean Corpuscular Hemoglobin Concent 33.7 g/dl (32-36) Platelet Count 254 K/uL (130-400) Mean Platelet Volume 9.8 fL (7.4-10.4) Neutrophils (%) (Auto) 86.3 % Lymphocytes (%) (Auto) 6.3 % Monocytes (%) (Auto) 6.6 % Eosinophils (%) (Auto) 0.2 % Basophils (%) (Auto) 0.2 % Neutrophils # (Auto) 7.73 K/uL (1.4-6.5) Lymphocytes # (Auto) 0.56 K/uL (1.2-3.4) Monocytes # (Auto) 0.59 K/uL (0.11-0.59) Eosinophils # (Auto) 0.02 K/uL (0-0.5) Basophils # (Auto) 0.02 K/uL (0-0.2) RDW Standard Deviation 45.2 fL (36.4-46.3) RDW Coefficient of Variation 13.7 % (11.5-14.5) Immature Granulocyte % (Auto) 0.4 % Immature Granulocyte # (Auto) 0.04 K/uL (0.00-0.02) Anion Gap 7.0 mmol/L (3-11) Est Creatinine Clear Calc Drug Dose 76.6 ml/min Estimated GFR () 92.6 Estimated GFR (Non- 79.9 BUN/Creatinine Ratio 12.1 (10-20) Calcium Level 8.8 mg/dl (8.5-10.1) Total Bilirubin 0.4 mg/dl (0.2-1) Aspartate Amino Transf (AST/SGOT) 43 U/L (15-37) Alanine Aminotransferase (ALT/SGPT) 57 U/L (12-78) Alkaline Phosphatase 84 U/L (45-117) Total Protein 6.8 gm/dl (6.4-8.2) Albumin 3.6 gm/dl (3.4-5.0) Globulin 3.2 gm/dl (2.5-4.0) Albumin/Globulin Ratio 1.1 (0.9-2) Influenza Type A Antigen Neg for Influ A (NEG) Influenza Type B Antigen Neg for Influ B (NEG) Medications Administered Medications (Trade) Dose Ordered Sig/Kimberly Route Start Time Stop Time Status Last Admin Dose Admin Albuterol Sulfate (Ventolin 0.5% 2.5MG/0.5ML Neb) 2.5 mg NOW STAT INH 05/29/17 19:49 05/29/17 19:51 DC 05/29/17 20:16 2.5 MG Ketorolac Tromethamine (Toradol Inj) 30 mg NOW STAT IV 05/29/17 19:49 05/29/17 19:51 DC 05/29/17 20:16 30 MG Acetaminophen (Tylenol Tab) 1,000 mg NOW STAT PO 05/29/17 19:49 05/29/17 19:51 DC 05/29/17 20:15 1,000 MG Ondansetron HCl (Zofran Inj) 4 mg NOW STAT IV 05/29/17 19:49 05/29/17 19:51 DC 05/29/17 20:16 4 MG Sodium Chloride 500 ml @ 999 mls/hr Q31M STAT IV 05/29/17 19:49 05/29/17 20:19 DC 05/29/17 20:16 999 MLS/HR Ondansetron HCl (ZOFRAN ODT 4MG Home Pack) 1 homepack UD ONCE PO 05/29/17 22:00 05/29/17 22:01 DC 05/29/17 22:06 1 HOMEPACK ED Course Patient was seen and examined Vital signs including blood pressure were reviewed medications list was verified with patient Labs were obtained, and a saline lock was established The patient was medicated with Toradol, Tylenol and Zofran. She was hydrated with 500 mL normal saline. The patient was reassessed. She was feeling slightly better. The nausea was better. We discussed her workup at length. She voiced understanding, was comfortable being discharged home. I reviewed discharge instructions the patient. They voiced understanding and had no further questions. Medical Decision Differential diagnosis: Influenza, pneumonia, asthma exacerbation, other viral syndrome This patient is a 46-year-old female that presents to the emergency department with complaints of cough, fever and some difficulty breathing. On exam, she was moderately ill. Her vital signs were however stable. She is not hypoxic. Her workup reveals no leukocytosis. Her chest x-ray is negative for pneumonia. Influenza swab was also negative. This is likely a viral illness. I believe she is stable to be discharged home with supportive care. She was encouraged to continue her nebulizer treatments as prescribed. She was also encouraged to follow up as soon as possible with her primary care physician, and return to the emergency department with worsening symptoms. She was in agreement with this plan. This chart was completed in part utilizing [employer] Speech Voice Recognition software. Attempts were made to minimize the grammatical errors, random word insertions, pronoun errors and incomplete sentences. Any formal questions or concerns about the content, text or information contained within the body of this dictation should be directly addressed to the provider for clarification. Medication Reconcilliation Current Medication List: was personally reviewed by me Blood Pressure Screening Patient's blood pressure: Normal blood pressure Impression Primary Impression: Influenza-like symptoms Departure Information Dispostion Home / Self-Care Condition FAIR Prescriptions Ipratropium-Albuterol (DUONEB) 3 Ml Nebu 1 TREATMENT INH Q4H, #30 INHA Prov: Indira Turpin PA-C 05/29/17 Referrals Kevin Webb M.D. (PCP) Patient Instructions My [facility] Additional Instructions You have been evaluated in the emergency department for flulike symptoms. An influenza swab was performed. It was negative. A chest x-ray did not show any signs of pneumonia. This is likely a viral illness. Please take Zofran 1 tab under the tongue every 6 hours as needed for nausea Please continue current medications as prescribed. Please use your nebulizer treatment every 4-6 hours as needed for difficulty breathing or wheezing. Please increase fluids. I would recommend staying well hydrated with water and sports drinks. Please follow-up with your primary care physician as soon as possible for recheck. Please do not hesitate to return to the emergency department with a new, worsening or concerning symptoms; especially, difficulty breathing, uncontrolled fever, severe headache or neck pain Work Instructions Return To Work: 2 days
[2017-05-29 20:12] LABS: BASO % 0.2 %; BASO ABS # 0.02 K/uL (0-0.2); EOS % 0.2 %; EOS ABS # 0.02 K/uL (0-0.5); HEMOGLOBIN 13.8 g/dL (12.0-16.0); IG# 0.04 K/uL (0.00-0.02); LYMPH % 6.3 %; LYMPH ABS # 0.56 K/uL (1.2-3.4); MEAN CELL VOLUME 91.3 fL (80-100); MEAN CORPUSCULAR HEMOGLOBIN 30.7 pg (25-34); MEAN CORPUSCULAR HGB CONC 33.7 g/dl (32-36); MEAN PLATELET VOLUME 9.8 fL (7.4-10.4); MONO % 6.6 %; MONO ABS # 0.59 K/uL (0.11-0.59); NEUT % 86.3 %; NEUT ABS # 7.73 K/uL (1.4-6.5); PLATELET COUNT 254 K/uL (130-400); RED CELL DISTRIBUTION WIDTH CV 13.7 % (11.5-14.5); RED CELL DISTRIBUTION WIDTH SD 45.2 fL (36.4-46.3); WHITE BLOOD COUNT 8.96 K/uL (4.8-10.8)
[2017-05-29] MEDS ORDERED: GLUC1CAP33 PO (20:14)
[2017-05-29] MEDS ORDERED: MULT-506 PO (20:14)
[2017-05-29 20:24] LABS: ALBUMIN 3.6 gm/dl (3.4-5.0); CALCIUM 8.8 mg/dl (8.5-10.1); CREATININE 0.86 mg/dl (0.60-1.20); POTASSIUM 3.6 mmol/L (3.5-5.1)
[2017-05-29 20:27] LABS: TOTAL PROTEIN 6.8 gm/dl (6.4-8.2)
--- NOTE | 2017-05-29 20:50 | DIAGNOSTIC IMAGING REPORT ---
CHEST 2 VIEWS ROUTINE CLINICAL HISTORY: 46 years-old Female presenting with cough fever hx asthma. TECHNIQUE: PA and lateral views of the chest were obtained. COMPARISON: 06/12/2016. FINDINGS: Cardiomediastinal silhouette normal. Lungs and pleural spaces clear. Osseous structures normal. Cholecystectomy clips noted. IMPRESSION: 1. No acute cardiopulmonary disease. Electronically signed by: Clarence Chaves M.D. 05/29/2017 8:48 PM Dictated Date/Time: 05/29/2017 8:48 PM
[2017-05-29 21:20] LABS: INFLUENZA B ANTIGEN Neg for Influ B (NEG)
[2017-05-29] MEDS ORDERED: ONDANSETRON HOME PACK 4MG OD TAB PO ONE (22:00)
[2017-05-29 22:08] VITALS: BP 118/64; PULSE 74; TEMP 37; O2SAT 98
[2017-05-29] MEDS ORDERED: ALBUTEROL HFA 8 GM INHALER INH ONE (22:30)
[2017-05-29] MEDS ORDERED: IPRASOL4 INH (22:34)
== END 2017-05-29 22:40 | disposition home or self-care (01) ==
LOC: C.EDB 19:31 → C.EDA 22:40
DX: R05 Cough (principal); R50.9 Fever, unspecified; R06.02 Shortness of breath; Z82.49 Family history of ischemic heart disease and other diseases of the circulatory system; Z83.3 Family history of diabetes mellitus